=== PATIENT | male | born 1945 | race Caucasian/White ===

== ENCOUNTER 2023-09-05 08:58 | Emergency (ER) | payer MEDICARE, SELFPAY ==
[2023-09-05 09:03] VITALS: BP 115/70; PULSE 46; RESP 18; TEMP 36.5; O2SAT 96; BMI 21.9
--- NOTE | 2023-09-05 09:24 | CT_ITS ---
STUDY: CT CERVICAL SPINE WITHOUT CONTRAST REASON FOR EXAM: Male, 78 years old. Neck pain following trauma. RADIATION DOSAGE (If Supplied By Facility): CTDIvol = ( 19.22 ) mGy, DLP = ( 519.68 ) mGycm TECHNIQUE: High resolution transaxial imaging was performed without contrast material. Sagittal and coronal images were reconstructed. Individualized dose optimization techniques were used for this CT. COMPARISON: None FINDINGS: Normal craniovertebral junction. There are degenerative changes of the anterior atlantoaxial articulation. Normal odontoid process. Normal cervical lordosis. Multilevel spondylosis. C2-3: Normal endplates. Normal disc height and morphology. Normal central canal and intervertebral neuroforamina. C3-4: Moderate degree of disc space narrowing and spondylosis. Uncovertebral arthrosis. Mild degree of bilateral neural foraminal stenosis. C4-5: Marked degree of disc space narrowing. Uncovertebral arthrosis. Spondylosis. Bilateral neural foraminal stenosis. C5-6: Marked degree of disc space narrowing. Spondylosis. Uncovertebral arthrosis. Moderate degree of bilateral neural foraminal stenosis. C6-7: Moderate degree of disc space narrowing. Mild bilateral neural foraminal stenosis. C7-T1: Normal endplates. Normal disc height and morphology. Normal central canal and intervertebral neuroforamina. The vascular stent is seen in the right internal carotid artery. CT/Spine Cervical without Contras IMPRESSION: Multilevel degenerative changes, as described above. Electronically Signed: Torsten Dykes MD at 10:46 EST ,
--- NOTE | 2023-09-05 09:24 | CT_ITS ---
STUDY: CT BRAIN WITHOUT CONTRAST REASON FOR EXAM: Male, 78 years old. Head trauma RADIATION DOSAGE (If Supplied By Facility): CTDIvol = ( 44.99 ) mGy, DLP = ( 880.47 ) mGycm TECHNIQUE: Transaxial CT imaging of the brain was performed without administration of intravenous contrast material. Individualized dose optimization techniques were used for this CT. COMPARISON: No relevant priors. FINDINGS: There is a small scalp hematoma overlying the right frontal bone. Normal calvarium. There is mild cerebral atrophy with widening of the extra-axial spaces and ventricular dilatation. There are areas of decreased attenuation within the white matter tracts of the supratentorial brain, consistent with microvascular disease changes. Normal basal ganglia and thalami. Normal brainstem. Normal cerebellum. There is no intracranial hemorrhage. There are no findings of an acute ischemic infarction. Atherosclerotic calcification of the vertebral arteries and cavernous portions of the internal carotid arteries bilaterally. Normal visualized paranasal sinuses. CT/Brain/Head without Contrast IMPRESSION: Small scalp hematoma overlying the right frontal bone. Chronic involutional changes. Electronically Signed: Torsten Dykes MD at 10:36 EST ,
--- NOTE | 2023-09-05 09:26 | ED.VIS.FALL ---
HPI HPI - Fall History of Present Illness Chief Complaint: Fall Detail of Chief Complaint: Head injury. Informant: patient and spouse/S.O. Occured/Mechanism Occurred: Today Mechanism/Context: Yes same level fall Usually ambulates: Without assistance Pain/Injury Pain Location: head, face and neck Quality of Pain: Dull Current Severity: Mild Maximum Severity: Mild Associated Symptoms Associated Symptoms: Negative for Parasthesias, Weakness, Loss of function, Inability to ambulate, Loss of consciousness or Amnesia Narrative Narrative: 78-year-old male history of prior triple bypass. believes he may be on Plavix. Today was in the bathroom. When he got up to walk to the bathroom he fell striking his head on the tile floor. Causing a laceration over his right forehead and injuring his nose. He does not believe nor does she believe he lost consciousness. He is also complaining some mild neck discomfort. Denies any weakness to his arms or legs or injuries to his arms or legs. No chest or abdominal or back complaints. Tetanus Immunization: <5 years Prior similar symptoms: No Recent Illness/Hospitalization: No [facility], [facility] Medical History (Updated 09/05/23 @ 11:[address] Ham Galindo MD) Arteriosclerosis of carotid artery High cholesterol Hypertension Internal carotid artery stent present Low calcium levels Memory loss Home Medications aspirin 81 mg tablet,delayed release (Adult Low Dose Aspirin) 81 mg PO DAILY 09/05/23 [History Last Taken 09/05/23] atorvastatin 80 mg tablet (Lipitor) 80 mg PO QHS 09/05/23 [History Last Taken 09/04/23] calcium carbonate 500 mg-vitamin D3 5 mcg (200 unit) tablet (Calcium 500 + D) 1 tab PO DAILY 09/05/23 [History Last Taken 09/05/23] clopidogrel 75 mg tablet 75 mg PO DAILY 09/05/23 [History Last Taken 09/05/23] memantine 10 mg tablet (Namenda) 15 mg PO DAILY 09/05/23 [History Last Taken 09/05/23] metoprolol tartrate 50 mg tablet (Lopressor) 75 mg PO BID 09/05/23 [History Last Taken 09/05/23] yozoxjjdexnm-lffafwms-tbdgme tablet (Multivitamin 50 Plus tablet) 1 tab PO DAILY 09/05/23 [History Last Taken Unknown] Allergy/AdvReac Type Severity Reaction Status Date / Time No Known Allergies Allergy Verified 09/05/23 09:12 Surgical History (Updated 09/05/23 @ 09:45 by Swapna Miller) History of open heart surgery Social History Smoking Status: Never smoker ROS ROS ED ROS Narrative He and deny recent illness. Review of Systems ROS Unobtainable: Denies due to encephalopathy Constitutional Constitutional ED: Denies chills or fever(s) Eyes Eyes: Denies blurry vision ENT ENT ED: Denies ear pain Cardiovascular Cardiovascular: Denies chest pain Respiratory/Chest Respiratory/Chest: Denies cough or dyspnea Gastrointestinal Gastrointestinal: Denies abdominal pain, diarrhea, nausea or vomiting Genitourinary Genitourinary ED: Denies dysuria or hematuria Musculoskeletal Musculoskeletal: Denies arthralgias Integumentary Denies abscess Neurologic Neurologic: Denies headache(s) Psychiatric Psychiatric: Denies anxiety or depression Endocrine Endocrinology: Denies polydipsia Hematologic/Lymphatic Hematologic/Lymphatic: Denies easy bleeding or easy bruising Allergic/Immunologic Allergic/Immunologic ED: Denies mouth swelling, tongue swelling or urticaria EXAM Physical Exam Narrative Exam Narrative: Well-appearing 78-year-old male. Vital signs are stable afebrile. Pulse ox is 96% on room air no hypoxia. at bedside. H EENT exam pupils round reactive to light. Is a dried blood, contusion and possible laceration to the right forehead just lateral to the midline. Pupils are round reactive to light extra motions are intact. Is a contusion nose nose and superficial abrasion. That does not need sewn. Pupils round reactive light. Dentition intact. Scalp nontender no hematoma or laceration. Cervical spine has mild discomfort to the lower C-spine midline. Trachea midline. Lungs clear to auscultation. Heart regular rhythm rate about 50 no murmur. Chest wall and ribs are nontender. Abdomen is soft nontender. Nondistended. No peritoneal signs. Back thoracic and lumbar spine nontender no signs of trauma. No posterior rib tenderness. No bruising to the back. Pelvic girdle intact. Moving all 4 extremities. 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 Normal dorsi plantarflexion. Normal flexion extension of both upper and lower extremities. Nontender no deformities. No shortening or rotation. Neurologically is awake. He answers questions and follows commands. He does have some memory difficulties per his when I asked him today or month he did not know those but she said that is his baseline. Const Vital Signs: 09/05/23 09:03 09/05/23 09:25 09/05/23 11:00 Temperature 97.7 F L 98.6 F Temperature Source Temporal Temporal Pulse Rate 46 L 78 Respiratory Rate 18 16 Respiratory Effort Normal Non-Labored Respiratory Depth Normal Respiratory Pattern Normal Blood Pressure 115/70 113/76 Blood Pressure Mean 85 88 Pulse Ox 96 97 Oxygen Delivery Method Room Air Room Air Room Air Positive well nourished and well developed; Negative for obese, cachectic, contractures or unkempt General Appearance ED: well developed and NAD; Negative for unkempt, cachectic or contractures Nutritional Appearance: Negative for cachectic or obese HEENT Reports normocephalic HEENT Narrative: Right forehead contusion. Dried blood. Nasal contusion contusion. Abrasion of the right side of his nose. trauma, contusion and tenderness; Negative for atraumatic Eyes PERRL and EOMs intact bilaterally General Eye ED: Negative for pale conjunctiva, scleral icterus or other Neck full ROM, no lymphadenopathy and supple General: Negative for tenderness Chest Wall inspection of chest normal and palpation of chest normal Chest: Negative for other Resp normal respiratory effort, no retractions and clear to auscultation bilaterally Effort and Inspection: Negative for pain with movement Auscultation: Negative for rales, rhonchi or wheezes Cardio regular rate, regular rhythm, S1 normal heart sound, S2 normal heart sound and no murmurs Rate: Negative for bradycardia or tachycardic Rhythm: Negative for abnormal rhythm Bruits: Negative for other GI non-tender, non-distended and no masses Inspection: Negative for abdominal distention Auscultation: normoactive bowel sounds Palpation: soft; Negative for guarding Back/Spine no CVA tenderness General Back: Negative for CVA tenderness, erythema, ecchymosis, swelling or tenderness Cervical Spine: cervical spine tenderness Lumbar Spine / Lower Back: Negative for lumbar spinal tenderness or paraspinal muscle tenderness Extremity Extremity Narrative: Tender. No deformity. Normal range of motion. 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 Normal dorsi plantarflexion. Neuro No oriented x3, CN's II-XII intact bilaterally, moves all extremities and no focal motor deficits Neuro Narrative: Awake and alert. Has known memory difficulties. Does not know the day or month or year. states that is his baseline. Sensorium / Orientation: alert, oriented to person, oriented to place, orientation impaired and confused; Negative for oriented to time, lethargic or stuporous Motor Exam: strength 5/5 throughout Psych mental status grossly normal and thought process normal Appearance: Negative for unkempt Attitude: No agitated Mood & Affect: Negative for depressed, anxious or tearful Skin General Skin Exam: Negative for other Lesions: no lesions Rashes: no rashes Trauma: abrasion MDM MDM MDM Narrative Medical decision making narrative: 78-year-old male fell and struck his head has abrasions and contusions to his face and forehead. Once we cleaned off we can determine if he has any lacerations need repaired. CAT scan of his head and C-spine are being obtained. Screening labs are being obtained. He has baseline confusion states that is not new today. Repeat exam patient is resting comfortably in bed. I went over all test results with both he and his . They do not know of any history of bradycardia. But his blood pressures have been fine. Nurses are cleaning off his face I will reevaluate that to make sure he does not need any suturing. He will be ambulated. Patient on repeat exam is doing well at 1220. He ambulated to the bathroom on his own without any difficulty. Nurses cleaned his wounds there is nothing to repair. However the forehead superficial laceration dressed and also the one on his nose. Outpatient follow-up. Return if worse. His current vital signs are stable with a heart rate of 78 and blood pressure 113/76. History & Record Review Discussion w/independent historian: Patient and Family Additional record(s) reviewed:: No prior records Lab Data Attestation: I reviewed the patient's lab results. Lab results narrative: CBC shows slight white count of 6.9. H&H 12.5 and 38.4. Platelets 177. Lites show a gap of 2. Normal BUN and 16 and creatinine 0.7. Glucose 109. CAT scan of his head and neck shows chronic changes but no acute bleed nor fracture. No prior labs available to compare to. Labs: Laboratory Results - last 24 hr 09/05/23 09:45 WBC 6.9 RBC 3.94 L Hgb 12.5 L Hct 38.4 L MCV 97.5 H MCH 31.7 MCHC 32.6 RDW Std Deviation 45.7 H RDW Coeff of Noemí 12.9 Plt Count 177 MPV 10.2 Immature Gran % (Auto) 0.300 Neut % (Auto) 65.9 Lymph % (Auto) 14.8 L Tripp % (Auto) 11.8 H Eos % (Auto) 6.3 H Baso % (Auto) 0.9 Absolute Neuts (auto) 4.6 Absolute Lymphs (auto) 1.03 Nucleated RBC % 0 Sodium 140 Potassium 3.8 Chloride 104 Carbon Dioxide 34.0 H Anion Gap 2 L BUN 16 Creatinine 0.74 Estim Creat Clear Calc 65.32 Est GFR (MDRD) Af Amer 131 Est GFR (MDRD) Non-Af 109 BUN/Creatinine Ratio 21.5 H Glucose 109 H Calcium 8.9 Radiography Diagnostic Testing: Clinical Impression(s) from Imaging Studies Brain CT 09/05/23 09:24 IMPRESSION: Small scalp hematoma overlying the right frontal bone. Chronic involutional changes. Electronically Signed: Torsten Dykes MD at 10:36 EST , Cervical Spine CT 09/05/23 09:24 IMPRESSION: Multilevel degenerative changes, as described above. Electronically Signed: Torsten Dykes MD at 10:46 EST , Rhythm Strip Rhythm Strip: Sinus bradycardia Rate: 48 Ectopy: None EKG Initial EKG: Attestation: I personally reviewed and interpreted this EKG as follows: Interpretation: Sinus Rhythm and Sinus Bradycardia Comments: Sinus bradycardia rate of 48 no acute signs of DC nor ischemia. No prior EKG available for review. Prior EKG tracings: not available for review Discharge Plan Triage Chief Complaint: Fall ED Provider: Ham Galindo Dx/Rx/DC Orders Clinical Impression: Anemia, Bradycardia, Closed head injury, Contusion of forehead, Fall Instructions: ED Facial Contusion Prescriptions: No Action clopidogrel 75 mg tablet 75 mg PO DAILY memantine [Namenda] 10 mg tablet 15 mg PO DAILY metoprolol tartrate [Lopressor] 50 mg tablet 75 mg PO BID aspirin [Adult Low Dose Aspirin] 81 mg tablet,delayed release (DR/EC) 81 mg PO DAILY atorvastatin [Lipitor] 80 mg tablet 80 mg PO QHS Multivitamin 50 Plus Tablet 1 tab PO DAILY calcium carbonate-vitamin D3 [Calcium 500 + D] 500 mg-5 mcg (200 unit) tablet 1 tab PO DAILY Primary Care Provider: Care Physician,No Primary Referrals: Douglas Lee MD [Med Staff - [place]] - 1-2 Weeks NOT,DEFINED [Non-Staff] - Activity Restrictions/Additional Instructions: Tylenol for any pain. Ice to your forehead and nose. Your forehead and nose wound was dressed to help stop the bleeding. Follow-up with a local primary care physician. Return if intractable vomiting or feeling worse. Disposition Disposition: Home, Self Care
--- NOTE | 2023-09-05 09:33 | EKG12_ITS ---
Test Reason : Blood Pressure : / mmHG Vent. Rate : 048 BPM Atrial Rate : 048 BPM P-R Int : 182 ms QRS Dur : 078 ms QT Int : 460 ms P-R-T Axes : 065 026 022 degrees QTc Int : 410 ms Sinus bradycardia Nonspecific ST and T wave abnormality Abnormal ECG Confirmed by MATT THRASHER, KATHIE ([id number]), advertising editor CAMI WORTHY ([id number]) on 09/14/2023 9:42:26 AM Referred By: WALT/JOHN Confirmed By:KATHIE GUTIERREZ MD
[2023-09-05 09:52] LABS: Absolute Lymphocyte Count 1.03 X10^3/uL (0.83-4.51); Absolute Neutrophil Count 4.6 X10^3/uL (2.0-7.7); Basophil# 0.06 X10^3/uL; Basophil% 0.9 % (0-1); Eosinophil# 0.44 X10^3/uL; Eosinophils% 6.3 % (0-5); Hematocrit 38.4 % (40-54); Hemoglobin 12.5 g/dL (13.0-16.5); Lymphocyte # 1.03 X10^3/ul (0.83-4.51); Lymphocyte % 14.8 % (19-41); Mean Corp Hgb Conc 32.6 g/dL (32-36); Mean Corpuscular Hgb 31.7 pg (27.0-32.0); Mean Corpuscular Volume 97.5 fL (80-94); Mean Platelet Vol. 10.2 fl (6.2-12.0); Monocyte# 0.82 X10^3/uL; Monocyte% 11.8 % (0-10); NRBC Flagged by Analyzer 0 % (0-5); Neutrophil # 4.57 X10^3/uL (2.7-7.7); Neutrophil % 65.9 % (47-70); Platelet Count 177 K/mm3 (150-450); RBC Distribution Width CV 12.9 % (11.6-14.6); RBC Distribution Width SD 45.7 fl (35.1-43.9); Red Blood Count 3.94 M/mm3 (4.6-6.2); White Blood Count 6.9 K/mm3 (4.4-11.0)
[2023-09-05 10:04] LABS: Anion Gap 2 (5-15); BUN 16 mg/dL (7-18); BUN/Creat Ratio 21.5 RATIO (10-20); Calcium,Total 8.9 mg/dL (8.5-10.1); Chloride 104 mmol/L (98-107); Creatinine, Serum 0.74 mg/dL (0.70-1.30); EST Glomerular Filtration Rate 109 mL/min (>60); Est Glom Filt Rate - Afr Amer 131 mL/min (>60); Estimated Creatinine Clearance 65.32 ml/min; Glucose 109 mg/dL (74-106); Potassium 3.8 mmol/L (3.5-5.1); Sodium Level 140 mmol/L (136-145)
[2023-09-05 11:00] VITALS: BP 113/76; PULSE 78; RESP 16; TEMP 37; O2SAT 97
[2023-09-05 12:32] VITALS: BP 128/69; PULSE 49; RESP 18; O2SAT 97
== END 2023-09-05 12:36 | disposition home or self-care (01) ==
PROVIDERS: Emergency Provider Emergency Medicine; Visit Provider Emergency Medicine
DX: S01.81XA Laceration without foreign body of other part of head, initial encounter (principal); R00.1 Bradycardia, unspecified; D64.9 Anemia, unspecified; E78.00 Pure hypercholesterolemia, unspecified; I10 Essential (primary) hypertension; W18.30XA Fall on same level, unspecified, initial encounter; Z79.02 Long term (current) use of antithrombotics/antiplatelets; Z79.82 Long term (current) use of aspirin; Z79.899 Other long term (current) drug therapy
CPT/HCPCS: 70450; 72125; 80048; 85025; 93005; 99283